=== PATIENT | male | born 2005 | race Two or more races ===

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

== ENCOUNTER 2024-05-23 06:07 | Outpatient (CLI) | payer OTHER ==
[~2024-05-23 06:07] MED LIST changes: +CEPHALEXIN500 MG PO; +CILOXAN5 ML OTIC
[2024-05-23 06:57] LABS: HEMOGLOBIN 13.9 g/dL (13-16.00); MEAN CELL VOLUME 84.6 fL (80.0-100.00); MEAN CORPUSCULAR HEMOGLOBIN 29.4 pg (27.00-32.0); MEAN CORPUSCULAR HGB CONC 34.7 g/dl (32.0-36.0); PLATELET COUNT 247 K/uL (150-450); RED BLOOD COUNT 4.72 M/uL (4.00-6.00); RED CELL DISTRIBUTION WIDTH 13.3 % (11.5-14.5)
[2024-05-23 07:01] LABS: URINE APPEARANCE Clear; URINE BILIRRUBIN Negative (NEGATIVE); URINE BLOOD Negative; URINE COLOR Yellow; URINE GLUCOSE Negative (NEGATIVE); URINE KETONE Negative (NEGATIVE); URINE LEUKOCYTE Negative; URINE NITRATE Negative; URINE PROTEIN Negative (NEGATIVE)
[2024-05-23 07:02] LABS: URINE BACTERIA 4.8 uL (0.0-1933); URINE RBC 9.5 uL (0.0-20.8); URINE WBC 4.7 uL (0.0-23.2)
[2024-05-23 07:14] LABS: URINE CAST 0.14 uL (0.0-1.40); URINE EPITHELIAL CELLS 0.9 uL (0.0-38.8)
[2024-05-23 07:17] LABS: CALCIUM 9.9 mg/dL (8.5-10.1); CREATININE SERUM 0.83 mg/dL (0.70-1.30); GFR 116.95; POTASSIUM 4.22 mEq/L (3.5-5.1)
[2024-05-24 12:05] LABS: ob NEGATIVE (NEGATIVE)
== END 2024-05-23 06:08 | disposition home or self-care (01) ==
LOC: LAB 06:07
PROVIDERS: ATTEND Internal Medicine
DX: E03.9 Hypothyroidism, unspecified (principal); E78.9 Disorder of lipoprotein metabolism, unspecified; E55.9 Vitamin D deficiency, unspecified

== ENCOUNTER 2024-05-23 07:04 | Outpatient (CLI) | payer OTHER | END 2024-05-23 07:07 | disposition home or self-care (01) | LOC: RAD 07:04 | PROVIDERS: ATTEND Internal Medicine Gastroenterology | DX: K59.00 Constipation, unspecified (principal); E03.9 Hypothyroidism, unspecified; E78.9 Disorder of lipoprotein metabolism, unspecified; E55.9 Vitamin D deficiency, unspecified ==